=== PATIENT | female | born 1960 | race Caucasian/White ===

== ENCOUNTER 2017-03-05 16:59 | Emergency (ER) | payer BC ==
[~2017-03-05] VITALS: Ht 170.2 cm; Wt 51.9 kg
[~2017-03-05 16:59] MED LIST: HYDROCODON-ACE1 EAC7 PO; LEVAQUIN500 MG PO; MYFORTIC360 MG PO; PERCOCET 5/31 TABLET PO; PROGRAF1 MG PO; RELIE EAC PO; tylenol
[2017-03-05 18:19] LABS: HEMATOCRIT 35.8 % (36.0-46.0); HEMOGLOBIN 11.2 G/DL (11.9-15.5); MCH 26.1 PG (29.0-34.0); MCHC 31.3 G/DL (30.0-36.0); MCV 83.4 FL (83-99); PLATELET COUNT 158 K/uL (156-360); RBC DIS.WIDTH-CV 13.6 % (11.8-14.6); RBC DIS.WIDTH-SD 41.1 % (39-53); RED BLOOD COUNT 4.29 M/uL (3.80-5.20); WHITE BLOOD COUNT 4.1 K/uL (4.1-10.2)
[2017-03-05 18:40] LABS: ALBUMIN 4.2 g/dL (3.2-4.8)
[2017-03-05 18:41] LABS: CHLORIDE 107 mEq/L (99-109); POTASSIUM 4.3 mEq/L (3.7-5.4); SODIUM 140 mEq/L (136-147)
[2017-03-05 18:43] LABS: GLUCOSE 98 mg/dL (70-99); TOTAL PROTEIN 7.4 g/dL (6.4-8.3)
[2017-03-05 18:45] LABS: TOTAL BILIRUBIN 0.4 mg/dL (0.0-1.0)
[2017-03-05 18:46] LABS: ALKALINE PHOSPHATASE 42 IU/L (3-129)
[2017-03-05 18:46] LABS: APPEARANCE CLEAR ((CLEAR)); BILIRUBIN NEGATIVE; BLOOD NEGATIVE; COLOR YELLOW ((YELLOW)); GLUCOSE (STRIP) NEGATIVE; KETONES NEGATIVE; LEUKOCYTES TRACE; NITRITE NEGATIVE; PROTEIN (STRIP) NEGATIVE; SPECIFIC GRAVITY 1.019 (1.000-1.030)
[2017-03-05 18:47] LABS: CREATININE 1.5 mg/dL (0.6-1.3); GFR ESTIMATE (CALCULATED) 38 mL/min/
[2017-03-05 18:48] LABS: AST (GOT) 16 IU/L (2-34); UREA NITROGEN (BUN) 18 mg/dL (9-23)
[2017-03-05 18:50] LABS: ALT (GPT) 8 IU/L (3-49)
[2017-03-05 18:56] LABS: BACTERIA NONE SEEN /HPF; EPITHELIAL CELLS RARE /HPF; MUCUS TRACE /LPF; RED BLOOD CELLS 0-5 /HPF (0-5); UCUL ADDED? NO; WHITE BLOOD CELLS 0-5 /HPF (0-5)
[2017-03-05] MEDS ORDERED: KEFLEX500 MG PO (21:52)
[2017-03-05 22:12] VITALS: BP 122/78
== END 2017-03-05 21:52 | disposition home or self-care (01) ==
LOC: EME 16:59
DX: N39.0 Urinary tract infection, site not specified (principal); Z94.0 Kidney transplant status; Z90.49 Acquired absence of other specified parts of digestive tract
CPT/HCPCS: 76770; 80053; 81003; 85027; 99281; 99284

== ENCOUNTER 2017-10-03 12:01 | Observation (INO) | payer BC ==
[~2017-10-03] VITALS: Ht 170.2 cm; Wt 53.1 kg
[~2017-10-03 12:01] MED LIST changes: +KEFLEX500 MG PO
[2017-10-03 12:44] LABS: HEMATOCRIT 34.8 % (36.0-46.0); HEMOGLOBIN 11.2 G/DL (11.9-15.5); MCH 26.6 PG (29.0-34.0); MCHC 32.2 G/DL (30.0-36.0); MCV 82.7 FL (83-99); PLATELET COUNT 194 K/uL (156-360); RBC DIS.WIDTH-CV 13.3 % (11.8-14.6); RBC DIS.WIDTH-SD 39.6 % (39-53); RED BLOOD COUNT 4.21 M/uL (3.80-5.20); WHITE BLOOD COUNT 7.2 K/uL (4.1-10.2)
[2017-10-03 12:54] LABS: ALBUMIN 4.1 g/dL (3.2-4.8)
[2017-10-03 12:55] LABS: CHLORIDE 108 mEq/L (99-109); POTASSIUM 4.7 mEq/L (3.7-5.4); SODIUM 140 mEq/L (136-147)
[2017-10-03 12:57] LABS: GLUCOSE 95 mg/dL (70-99); TOTAL PROTEIN 7.4 g/dL (6.4-8.3)
[2017-10-03 12:59] LABS: TOTAL BILIRUBIN 0.4 mg/dL (0.0-1.0)
[2017-10-03 13:00] LABS: ALKALINE PHOSPHATASE 47 IU/L (3-129)
[2017-10-03 13:01] LABS: CREATININE 1.5 mg/dL (0.6-1.3); GFR ESTIMATE (CALCULATED) 38 mL/min/
[2017-10-03 13:02] LABS: AST (GOT) 18 IU/L (2-34); UREA NITROGEN (BUN) 16 mg/dL (9-23)
[2017-10-03 13:04] LABS: ALT (GPT) 10 IU/L (3-49)
[2017-10-03 13:10] LABS: APPEARANCE SL.HAZY ((CLEAR)); BILIRUBIN NEGATIVE; BLOOD LARGE; COLOR YELLOW ((YELLOW)); GLUCOSE (STRIP) NEGATIVE; KETONES NEGATIVE; LEUKOCYTES LARGE; NITRITE NEGATIVE; PROTEIN (STRIP) 30; SPECIFIC GRAVITY 1.012 (1.000-1.030); UROBILINOGEN 0.2 MG/DL (0.2-1.0)
[2017-10-03 13:25] LABS: BACTERIA RARE /HPF; EPITHELIAL CELLS NONE SEEN /HPF; MUCUS TRACE /LPF; RED BLOOD CELLS TNTC /HPF (0-5); UCUL ADDED? YES; WHITE BLOOD CELLS TNTC /HPF (0-5)
[2017-10-03] MEDS ORDERED: PROGRAF0.5 MG PO (19:08)
[2017-10-03 21:13] VITALS: BP 136/63
[2017-10-03 23:58] VITALS: BP 110/70
[2017-10-04 06:10] LABS: HEMATOCRIT 32.4 % (36.0-46.0); HEMOGLOBIN 10.2 G/DL (11.9-15.5); MCH 26.1 PG (29.0-34.0); MCHC 31.5 G/DL (30.0-36.0); MCV 82.9 FL (83-99); PLATELET COUNT 178 K/uL (156-360); RBC DIS.WIDTH-CV 13.5 % (11.8-14.6); RBC DIS.WIDTH-SD 39.8 % (39-53); RED BLOOD COUNT 3.91 M/uL (3.80-5.20); WHITE BLOOD COUNT 4.3 K/uL (4.1-10.2)
[2017-10-04 06:31] LABS: CHLORIDE 112 MEQ/L (99-109); CREATININE 1.2 MG/DL (0.6-1.3); GFR ESTIMATE (CALCULATED) 49 mL/min/; GLUCOSE 95 mg/dL (70-99); POTASSIUM 4.5 MEQ/L (3.7-5.4); SODIUM 142 MEQ/L (136-147); UREA NITROGEN (BUN) 12 mg/dL (9-23)
[2017-10-04 08:45] VITALS: BP 130/72
[2017-10-04 11:49] VITALS: BP 126/74
[2017-10-04 16:21] VITALS: BP 126/79
[2017-10-04 19:54] VITALS: BP 101/61
[2017-10-04 23:37] VITALS: BP 125/59
[2017-10-05 03:51] VITALS: BP 123/68
[2017-10-05 07:39] VITALS: BP 119/75
[2017-10-05 12:08] VITALS: BP 117/68
[2017-10-05] MEDS ORDERED: CIPRO500 MG PO (13:52)
== END 2017-10-05 14:55 | disposition home or self-care (01) ==
LOC: EME 12:01 → EDOF 18:54 → 3EAST 18:54 → ENRESERV 18:55 → 3EAST 20:17
PROVIDERS: Hospitalist
DX: N30.01 Acute cystitis with hematuria (principal); B96.20 Unspecified Escherichia coli [E. coli] as the cause of diseases classified elsewhere; Q61.3 Polycystic kidney, unspecified; Z94.0 Kidney transplant status; Z79.899 Other long term (current) drug therapy; Z87.440 Personal history of urinary (tract) infections; Z92.25 Personal history of immunosuppression therapy; D63.1 Anemia in chronic kidney disease; N18.3 Chronic kidney disease, stage 3 (moderate); R01.1 Cardiac murmur, unspecified; K76.89 Other specified diseases of liver; Z90.49 Acquired absence of other specified parts of digestive tract
CPT/HCPCS: 74176; 80048; 80053; 81003; 85027; 87040; 87077; 87086; 87186; 99281; 99285; G0378; J0696; J7030; J7040; J7507; J7518